=== PATIENT | female | born 1985 | race Hispanic/Latino ===

== ENCOUNTER 2017-06-27 20:59 | Emergency (ER) | payer OTHER ==
[2017-06-27 21:13] VITALS: BP 115/79; PULSE 71; RESP 71; TEMP 98; O2SAT 16
[2017-06-27 21:43] LABS: BASO # 0.1 K/uL (0.0-0.2); BASO % 0.8 % (0.0-2.0); EOS # 0.3 K/uL (0.0-0.7); EOS % 2.2 % (0.0-4.0); HEMATOCRIT 38.3 % (34.0-47.0); LYMPH # 1.9 K/uL (1.0-4.3); LYMPH % 16.6 % (20.0-40.0); MEAN CELL VOLUME 86.1 fl (81.0-99.0); MEAN CORPUSCULAR HEMOGLOBIN 28.3 pg (27.0-31.0); MEAN CORPUSCULAR HGB CONC 32.9 g/dL (33.0-37.0); MEAN PLATELET VOLUME 7.9 fl (7.2-11.7); MONO # 0.8 K/uL (0.0-0.8); MONO % 7.3 % (0.0-10.0); NEUT # 8.4 K/uL (1.8-7.0); NEUT % 73.1 % (50.0-75.0); NRBC % 0.1 % (0.0-0.0); RED CELL DISTRIBUTION WIDTH 14.7 % (11.5-14.5); WHITE BLOOD COUNT 11.5 K/uL (4.8-10.8)
[2017-06-27 21:55] LABS: ALB/GLOB RATIO 1.2 (1.0-2.1); ALKALINE PHOSPHATASE 84 U/L (38-126); ALT/SGPT 47 U/L (9-52); AST/SGOT 35 U/L (14-36); BILIRUBIN,TOTAL 0.3 mg/dl (0.2-1.3); BLOOD UREA NITROGEN 14 mg/dl (7-17); CALCIUM 8.9 mg/dL (8.4-10.2); CARBON DIOXIDE 21 mmol/L (22-30); CHLORIDE 107 mmol/L (98-107); GFR AFRICAN-AMERICAN > 60; GLUCOSE,RANDOM 93 mg/dL (65-105); LIPASE 45 U/L (23-300); POTASSIUM 4.6 MMOL/L (3.6-5.0); SODIUM 139 mmol/l (132-148); TOTAL PROTEIN 7.3 G/DL (6.3-8.2)
[2017-06-27 22:12] LABS: RBC URINE 3 /hpf (0-3); URINE BACTERIA RARE (<OCC); URINE BILIRUBIN NEGATIVE (NEGATIVE); URINE BLOOD NEGATIVE (NEGATIVE); URINE COLOR YELLOW (YELLOW); URINE GLUCOSE (UA) NEG (Normal); URINE KETONE NEGATIVE (NEGATIVE); URINE LEUKOCYTE ESTERASE SMALL Leu/uL (Negative); URINE PROTEIN NEGATIVE (NEGATIVE); URINE UROBILINOGEN 0.2-1.0 mg/dL (0.2-1.0); WBC URINE 4 /hpf (0-5)
--- NOTE | 2017-06-27 22:16 | ED PDOC ---
HPI: Abdomen Time Seen by Provider: 06/27/17 21:17 Chief Complaint (Nursing): Abdominal Pain Chief Complaint (Provider): RUQ/epigastric pain History Per: Patient History/Exam Limitations: no limitations Onset/Duration Of Symptoms: Days (3) Outside of [place] travel?: No Current Symptoms Are (Timing): Intermittent Episodes Context: Food (atfter eating fatty foods or alcohol, notes severe pain to abd that radiates to back=lasting 20mins then resolving. intermitternt pain) Severity: Moderate Location Of Pain/Discomfort: RUQ, Epigastric Quality Of Discomfort: Cramping, Stabbing Associated Symptoms: Nausea, Back Pain. denies: Fever, Chills, Vomiting, Diarrhea, Loss Of Appetite, Chest Pain, Constipation, Urinary Symptoms Past Medical History Reviewed: Historical Data, Nursing Documentation, Vital Signs Vital Signs: Last Vital Signs Temp 98 F 06/27/17 21:04 Pulse 71 06/27/17 21:04 Resp 71 H 06/27/17 21:04 BP 115/79 06/27/17 21:04 Pulse Ox 16 L 06/28/17 01:53 - Medical History PMH: No Chronic Diseases - Family History Family History: States: No Known Family Hx - Home Medications Home Medications: Ambulatory Orders Medication Instructions Recorded Cyclobenzaprine [Cyclobenzaprine 10 mg PO TID #20 tab 06/28/17 HCl] Ibuprofen [Motrin] 600 mg PO Q6 #20 tab 06/28/17 - Allergies Allergies/Adverse Reactions: Allergies Allergy/AdvReac Type Severity Reaction Status Date / Time Penicillins Allergy RASH Verified 06/27/17 21:13 Review of Systems ROS Statement: Except As Marked, All Systems Reviewed And Found Negative Constitutional: Negative for: Fever, Chills Gastrointestinal: Positive for: Nausea, Abdominal Pain. Negative for: Vomiting Physical Exam - Reviewed Nursing Documentation Reviewed: Yes Vital Signs Reviewed: Yes - Physical Exam Appears: Positive for: Well, Non-toxic, No Acute Distress Skin: Positive for: Normal Color, Warm, DRY Neck: Positive for: Painless ROM Cardiovascular/Chest: Positive for: Regular Rate, Rhythm Respiratory: Positive for: CNT, Normal Breath Sounds Gastrointestinal/Abdominal: Positive for: Bowel Sounds, Soft, Tenderness (RUQ pain) Back: Positive for: Normal Inspection. Negative for: L CVA Tenderness, R CVA Tenderness Extremity: Positive for: Normal ROM Neurologic/Psych: Positive for: Alert, Oriented - Laboratory Results Result Diagrams: 06/27/17 21:40 06/27/17 21:40 - ECG O2 Sat by Pulse Oximetry: 16 - Progress ED Course And Treament: Orders Category Date Time Status COMP METABOLIC PANEL Stat Chem 06/27/17 21:40 Completed LIPASE Stat Chem 06/27/17 21:40 Completed ED Urine (POC) Stat ED Care 06/27/17 21:30 Ordered CBC (WITH DIFFERENTIAL) Stat IMELDA 06/27/17 21:40 Completed IV Insertion (Saline Lock) ONCE NURSING 06/27/17 21:27 Active URINALYSIS Stat URINALYSIS 06/27/17 21:49 Completed ABDOMEN LIMITED [US] Stat US 06/27/17 21:27 Ordered Medical Decision Making Medical Decision Making: pt again offered pain control, but declined. offered medication for nausea but declined. Disposition - Clinical Impression Clinical Impression: Back pain - Patient ED Disposition Is Patient to be Admitted: Transfer of Care - Disposition Disposition Time: 12:28 Condition: STABLE Prescriptions: Cyclobenzaprine [Cyclobenzaprine HCl] 10 mg PO TID #20 tab Ibuprofen [Motrin] 600 mg PO Q6 #20 tab Instructions: Acute Low Back Pain (ED) Forms: [employer] (Macanese)
--- NOTE | 2017-06-28 00:28 | ED PDOC ---
- Laboratory Results Result Diagrams: 06/27/17 21:40 06/27/17 21:40 - ECG O2 Sat by Pulse Oximetry: 16 Medical Decision Making Medical Decision Making: Case endorsed to senior grant writer from [employer] at 0000 pending US results and re-eval IMPRESSION: Normal retroperitoneal ultrasound. Disposition - Clinical Impression Clinical Impression: Back pain - POA Present On Arrival: None - Disposition Disposition: Routine/Home Disposition Time: 01:53 Condition: STABLE Prescriptions: Cyclobenzaprine [Cyclobenzaprine HCl] 10 mg PO TID #20 tab Ibuprofen [Motrin] 600 mg PO Q6 #20 tab Instructions: Acute Low Back Pain (ED) Forms: [employer] (Swazi)
--- NOTE | 2017-06-28 12:15 | US ---
HISTORY: RUQ pain COMPARISON: None. TECHNIQUE: Sonographic evaluation of the right upper quadrant of the abdomen. FINDINGS: LIVER: Measures 16.8 cm in length. Normal echogenicity of the liver parenchyma. A Rebecca's lobe with the right lobe liver is appreciated. No mass. No intrahepatic bile duct dilatation. GALLBLADDER: Unremarkable. No gallstones. COMMON BILE DUCT: Measures 3.6 mm. No stones. No dilatation. PANCREAS: Unremarkable as visualized. No mass. No ductal dilatation. RIGHT KIDNEY: Measures 10.1 cm in length. Normal echogenicity. No calculus, mass, or hydronephrosis. AORTA: No aneurysmal dilatation. IVC: Unremarkable. OTHER FINDINGS: None . IMPRESSION: Unremarkable limited abdomen ultrasound examination.
--- NOTE | 2017-06-28 12:16 | US ---
PROCEDURE: Ultrasound of the Kidneys HISTORY: flank pain COMPARISON: None available. TECHNIQUE: Sonogram of the kidneys. FINDINGS: RIGHT KIDNEY: Measures: 9.8 x 7.1 x 4.8 cm. Normal in size, contour and echogenicity. No stone, solid mass lesion or hydronephrosis visualized. LEFT KIDNEY: Measures: 10.3 x 5.1 x 6.1 cm. Normal in size, contour and echogenicity. No stone, solid mass lesion or hydronephrosis visualized. OTHER FINDINGS: None. IMPRESSION: Unremarkable renal sonogram.
== END 2017-06-28 02:31 | disposition home or self-care (01) ==
LOC: H.ER 20:59
DX: R10.13 Epigastric pain (principal); M54.9 Dorsalgia, unspecified; Z88.0 Allergy status to penicillin

== ENCOUNTER 2017-07-18 20:57 | Emergency (ER) | payer OTHER ==
[2017-07-18 21:12] VITALS: BP 120/77; PULSE 71; RESP 16; TEMP 98.4; O2SAT 97
[2017-07-18] MEDS ORDERED: Iohexol 240 (50 ml) PO STA (21:52)
[2017-07-18] MEDS ORDERED: Sodium Chloride 0.9% 1,000 ML IV STA (21:52)
[2017-07-18] MEDS ORDERED: Iohexol 240 (50 ml) ONE (22:04)
--- NOTE | 2017-07-18 22:27 | ED PDOC ---
HPI: Abdomen Time Seen by Provider: 07/18/17 21:18 Chief Complaint (Nursing): Abdominal Pain Chief Complaint (Provider): Abdominal Pain History Per: Patient History/Exam Limitations: no limitations Additional Complaint(s): 32 year old female presents to the emergency department with a complaint of a an abdominal pain that worsens at night, everyday, that lasts about 30 minutes. Radiates to the left upper quadrant interiorly. Denies nausea, vomiting, diarrhea, or any urinary symptoms. Last bowl movement was this morning. Of note, patient was seen in this facility on 06/27/2017 with a normal ultrasound. Past Medical History Reviewed: Historical Data, Nursing Documentation, Vital Signs Vital Signs: Last Vital Signs Temp 98.4 F 07/18/17 21:08 Pulse 71 07/18/17 21:08 Resp 16 07/18/17 21:08 BP 120/77 07/18/17 21:08 Pulse Ox 97 07/19/17 15:37 - Medical History PMH: No Chronic Diseases - Family History Family History: States: Unknown Family Hx - Home Medications Home Medications: Ambulatory Orders Medication Instructions Recorded Cyclobenzaprine [Cyclobenzaprine 10 mg PO TID #20 tab 06/28/17 HCl] Ibuprofen [Motrin] 600 mg PO Q6 #20 tab 06/28/17 - Allergies Allergies/Adverse Reactions: Allergies Allergy/AdvReac Type Severity Reaction Status Date / Time Penicillins Allergy RASH Verified 07/18/17 22:56 Review of Systems ROS Statement: Except As Marked, All Systems Reviewed And Found Negative (As per HPI, otherwise negative) Gastrointestinal: Positive for: Abdominal Pain. Negative for: Nausea, Vomiting , Diarrhea Genitourinary Female: Negative for: Dysuria, Frequency, Incontinence, Hematuria Physical Exam - Reviewed Nursing Documentation Reviewed: Yes Vital Signs Reviewed: Yes - Physical Exam Appears: Positive for: Non-toxic, No Acute Distress Head Exam: Positive for: ATRAUMATIC, NORMAL INSPECTION, NORMOCEPHALIC Skin: Positive for: Normal Color, Warm, Dry Cardiovascular/Chest: Positive for: Regular Rate, Rhythm. Negative for: Murmur Respiratory: Positive for: Normal Breath Sounds. Negative for: Accessory Muscle Use, Wheezing, Respiratory Distress Gastrointestinal/Abdominal: Positive for: Soft, Tenderness (LUQ tenderness ), Rebound. Negative for: Normal Exam, Guarding Extremity: Positive for: Normal ROM. Negative for: Pedal Edema Neurologic/Psych: Positive for: Alert, Oriented (x3) - Laboratory Results Result Diagrams: 07/18/17 22:32 07/18/17 22:32 - ECG O2 Sat by Pulse Oximetry: 97 (RA) Pulse Ox Interpretation: Normal Medical Decision Making Medical Decision Making: Time: 2200 Initial Impression: Gastritis vs colitis Initial Plan: CMP Lipase Urine DIP and Preg CBC w/ diff --Patient declined pain medications Time: 2251 Abd & Pelvis PO & IV Contrast Sodium Chloride 1L IV Iohexol 50 ml PO Urinalysis Scribe~Attestation: Documented by Hattie Lui, acting as a scribe for Mohsen Wilhelm MD. Provider Scribe~Attestation: All medical record entries made by the Scribe were at my direction and personally dictated by me. I have reviewed the chart and agree that the record accurately reflects my personal performance of the history, physical exam, medical decision making, and the department course for this patient. I have also personally directed, reviewed, and agree with the discharge instructions and disposition. Disposition - Clinical Impression Clinical Impression: Mesenteric mass - Disposition Referrals: [facility] [Outside] Pernell Pickett MD [Staff Provider] - Disposition Time: 01:00 Condition: STABLE Additional Instructions: Please followup with your primary care doctor on Thursday. Instructions: Non-Hodgkin Lymphoma (ED), Acute Abdominal Pain (GEN) Forms: [employer] (Georgian) Patient Signed Over To: Mohsen Wilhelm Handoff Comments: Pending CT.
[2017-07-18 22:52] LABS: BASO # 0.1 K/uL (0.0-0.2); BASO % 0.9 % (0.0-2.0); EOS # 0.3 K/uL (0.0-0.7); EOS % 2.7 % (0.0-4.0); HEMOGLOBIN 13.2 g/dL (12.0-16.0); LYMPH # 2.3 K/uL (1.0-4.3); LYMPH % 18.7 % (20.0-40.0); MEAN CELL VOLUME 85.4 fl (81.0-99.0); MEAN CORPUSCULAR HEMOGLOBIN 28.1 pg (27.0-31.0); MEAN CORPUSCULAR HGB CONC 32.9 g/dL (33.0-37.0); MEAN PLATELET VOLUME 8.4 fl (7.2-11.7); MONO % 8.2 % (0.0-10.0); NEUT # 8.7 K/uL (1.8-7.0); NEUT % 69.5 % (50.0-75.0); RBC 4.7 Mil/uL (3.80-5.20); RED CELL DISTRIBUTION WIDTH 14.9 % (11.5-14.5); WHITE BLOOD COUNT 12.4 K/uL (4.8-10.8)
[2017-07-18 23:01] LABS: ALB/GLOB RATIO 1.2 (1.0-2.1); ALBUMIN 4.3 g/dL (3.5-5.0); ALT/SGPT 53 U/L (9-52); AST/SGOT 27 U/L (14-36); BLOOD UREA NITROGEN 12 mg/dl (7-17); CALCIUM 9.4 mg/dL (8.4-10.2); GFR AFRICAN-AMERICAN > 60; GFR NON-AFRICAN AMERICAN > 60; LIPASE 56 U/L (23-300)
[2017-07-18 23:02] LABS: SQUAMOUS EPITHIAL 1 /hpf (0-5); URINE BACTERIA RARE (<OCC); URINE BILIRUBIN NEGATIVE (NEGATIVE); URINE BLOOD NEGATIVE (NEGATIVE); URINE CLARITY SLIGHTY-CLOUDY (Clear); URINE COLOR YELLOW (YELLOW); URINE GLUCOSE (UA) NEG (Normal); URINE LEUKOCYTE ESTERASE NEG Leu/uL (Negative); URINE NITRATE NEGATIVE (NEGATIVE); URINE PROTEIN 30 mg/dL (NEGATIVE)
[2017-07-19] MEDS ORDERED: Iohexol 300 100 ML IJ ONE (00:42)
[2017-07-19] MEDS ORDERED: Sodium Chloride 0.9% 50 ML IV ONE (00:43)
--- NOTE | 2017-07-19 01:36 | ED PDOC ---
- Laboratory Results Result Diagrams: 07/18/17 22:32 07/18/17 22:32 - ECG O2 Sat by Pulse Oximetry: 97 (RA) Medical Decision Making Medical Decision Makin:00 -Patient was transferred to mt by Dr. Seth, pending CT and reassessment. 01:24 Abd/Pelvis CT FINDINGS: Lower thorax: No acute findings. ABDOMEN: Liver: Unremarkable. No mass. Gallbladder and bile ducts: Unremarkable. No calcified stones. No ductal dilation. Pancreas: Unremarkable. No mass. No ductal dilation. Spleen: Unremarkable. No splenomegaly. Adrenals: Unremarkable. No mass. Kidneys and ureters: Unremarkable. No solid mass. No hydronephrosis. Stomach and bowel: Unremarkable. No obstruction. Appendix: No findings to suggest acute appendicitis. PELVIS: Bladder: Unremarkable. No mass. Reproductive: Unremarkable as visualized. ABDOMEN and PELVIS: Intraperitoneal space: 4.3 x 3.5 CM heterogeneous mass in the small bowel mesentery left mid abdomen. Axial image #4.3 x 3.6 CM. Enlarged regional mesenteric lymph nodes. No free air. No significant fluid collection. Bones/joints: Medial sternotomy wires. No acute fracture. No dislocation. Soft tissues: Unremarkable. Vasculature: Unremarkable. No abdominal aortic aneurysm. Lymph nodes: See above. IMPRESSION: 1. 4.3 x 3.5 CM mesenteric mass with regional lymphadenopathy. Findings highly suspicious for malignancy. Lymphoma is one of the primary considerations. 2. Remainder of findings as above. 130 Had discussion with patient at bedside regarding results. Pt. states that she was pain free at that moment. Explained concerning findings to patient and strongly encouraged followup with PMD in [place]. Also gave referral to Hem/Onc locally. Discussed return precautions. Xanax given at request of patient. Disposition - Clinical Impression Clinical Impression: Mesenteric mass - POA Present On Arrival: None - Disposition Referrals: [facility] [Outside] Pernell Pickett MD [Staff Provider] - Disposition: Routine/Home Disposition Time: 01:30 Condition: STABLE Additional Instructions: Please followup with your primary care doctor on Thursday. Instructions: Non-Hodgkin Lymphoma (ED), Acute Abdominal Pain (GEN) Forms: [employer] (Tajik)
--- NOTE | 2017-07-19 12:25 | CT ---
PROCEDURE: CT Abdomen and Pelvis with contrast HISTORY: LUQ pain COMPARISON: None. TECHNIQUE: Contrast dose: 90 cc Omnipaque Radiation dose: Total exam DLP = 592 mGy-cm. This CT exam was performed using one or more of the following dose reduction techniques: Automated exposure control, adjustment of the mA and/or kV according to patient size, and/or use of iterative reconstruction technique. FINDINGS: LOWER THORAX: Evaluation of the lung bases reveals no evidence of infiltrate or effusion. Visualized esophagus is unremarkable. LIVER: No focal liver mass is seen. Liver is mildly enlarged measuring 19-20 centimeters in length. No intrahepatic ductal dilatation is seen. GALLBLADDER AND BILE DUCTS: Unremarkable. PANCREAS: Unremarkable. No gross lesion or ductal dilatation. SPLEEN: Spleen is not enlarged. No focal splenic mass is noted. ADRENALS: Unremarkable. No mass. KIDNEYS AND URETERS: Unremarkable. No hydronephrosis. No solid mass. VASCULATURE: Unremarkable. No aortic aneurysm. BOWEL: No colonic wall thickening or pericolonic inflammatory change. Please see below peritoneal discussion for evaluation of the small bowel. APPENDIX: Normal appendix. PERITONEUM: There is evidence of an abnormal mesenteric mass in the left side of the mid abdomen with central low density. There appears to be multiple adjacent enlarged lymph nodes this region. Main portion of the mass measures 4 centimeters x 3.6 centimeters by 5.3 centimeters. There may be some invasion of some of the adjacent small bowel loops seen on axial image 36. Imaging findings are suspicious for lymphoma. Infectious process would be considered much less likely. LYMPH NODES: Multiple enlarged left-sided mesenteric lymph nodes. A few small scattered shotty retroperitoneal lymph nodes are noted. No definite enlarged pelvic or inguinal lymph nodes. BLADDER: Unremarkable. REPRODUCTIVE: There appears to be a low density ring in the region of the cervix probably representing contraceptive device. Uterus is otherwise unremarkable. No adnexal masses are seen. BONES: Mild degenerative changes are seen in the lower lumbar spine region. No lytic process is seen. OTHER FINDINGS: Visualized stomach is unremarkable. IMPRESSION: Large left abdominal inflammatory or neoplastic mass centralized in the left mesenteric with multiple adjacent enlarged lymph nodes suspicious for lymphoma. There may be some invasion of the outer serosal regions of some of the adjacent small bowel loops. A few small scattered retroperitoneal lymph nodes are seen elsewhere. Liver is enlarged. Spleen is nonenlarged. This agrees with preliminary report provided by [facility].
== END 2017-07-19 02:59 | disposition home or self-care (01) ==
LOC: H.ER 20:57
DX: R10.12 Left upper quadrant pain (principal); C85.90 Non-Hodgkin lymphoma, unspecified, unspecified site; Z88.0 Allergy status to penicillin
CPT/HCPCS: 74177; 80053; 81003; 81025; 83690; 85025; 96360; 99282; J7040; Q9966; Q9967